=== PATIENT | female | born 1945 | race Caucasian/White ===

== ENCOUNTER 2025-01-27 12:25 | Inpatient (IN) | payer MEDICARE ==
[~2025-01-27] VITALS: Ht 160 cm; Wt 62.6 kg
[~2025-01-27 12:25] MED LIST: ATOR20TA PO; ESCI10TA PO; METHYLPREDNISOLONE PO; Naproxen PO
[2025-01-27] MEDS ORDERED: METOCLOPRAMIDE HCL 10 MG/2 ML VIAL ONE (12:54)
[2025-01-27] MEDS ORDERED: MORPHINE SULFATE 4 MG/1 ML DISP.SYRIN ONE (12:55)
[2025-01-27] MEDS: IV NORMAL SALINE 1000 ML BAG IV ONE (13:02)
[2025-01-27] MEDS: MORPHINE SULFATE 2 MG/1 ML DISP.SYRIN IV ONE ×4 (13:03→16:54)
[2025-01-27] MEDS: METOCLOPRAMIDE HCL 10 MG/2 ML VIAL IV ONE (13:03)
[2025-01-27 13:05] LABS: BASOPHILS % (AUTO) 0.3 % (0.0-2.0); DIFFERENTIAL COMMENT 1; EOSINOPHILS # (AUTO) 0.1 K/uL (0.0-0.7); EOSINOPHILS % (AUTO) 0.7 % (0.0-7.0); HEMATOCRIT 40.4 % (31.2-41.9); HEMOGLOBIN 13.8 g/dL (10.9-14.3); LYMPHOCYTES # (AUTO) 1.9 K/uL (0.8-4.8); LYMPHOCYTES % (AUTO) 19.3 % (20.5-51.5); MEAN CORPUSCULAR HEMOGLOBIN 29.6 uug (24.7-32.8); MEAN CORPUSCULAR HGB CONC 34 g/dL (32.3-35.6); MEAN CORPUSCULAR VOLUME 86.7 fL (75.5-95.3); MONOCYTES # (AUTO) 0.6 K/uL (0.1-1.30); MONOCYTES % (AUTO) 5.9 % (0.0-11.0); NEUTROPHILS # (AUTO) 7.1 K/uL (1.8-8.9); NEUTROPHILS % (AUTO) 73.8 % (38.5-71.5); PLATELET COUNT (AUTO) 223 K/uL (179-408); RED BLOOD CELL COUNT(AUTO) 4.66 MIL/uL (3.63-4.92); RED CELL DISTRIBUTION WIDTH 14.8 % (12.3-17.7); WHITE BLOOD COUNT (AUTO) 9.7 K/uL (3.8-11.8)
[2025-01-27 13:17] LABS: ALANINE AMINOTRANSFERASE 23 U/L (14-59); ALBUMIN 3.8 g/dL (3.4-5.0); ALKALINE PHOSPHATASE 47 U/L (50-136); ASPARTATE AMINOTRANSFERASE 20 U/L (15-37); BILIRUBIN,DIRECT 0.2 mg/dL (0.0-0.2); BILIRUBIN,TOTAL 0.6 mg/dL (0.2-1.0); CALCIUM 9.6 mg/dL (8.5-10.1); CARBON DIOXIDE 25 mmol/L (21-32); CHLORIDE 104 mmol/L (98-107); CREATININE 0.8 mg/dL (0.6-1.3); GLUCOSE 115 mg/dL (74-106); LIPASE 18 U/L (16-77); SODIUM SERUM 141 mmol/L (136-145); TOTAL PROTEIN, SERUM 7.4 g/dL (6.4-8.2); UREA NITROGEN, BLOOD 14 mg/dL (7-18)
[2025-01-27] MEDS ORDERED: MORPHINE SULFATE 2 MG/1 ML DISP.SYRIN ONE ×3 (13:33→16:44)
[2025-01-27] MEDS ORDERED: IV NORMAL SALINE 250 ML IV ONE (14:09)
[2025-01-27] MEDS ORDERED: IOHEXOL 300MG/ML 100 ML INFUS..BTL ONE (14:09)
[2025-01-27] MEDS ORDERED: SWABABLE VALVE TRANSFER SET EA MC ONE (14:10)
[2025-01-27] MEDS ORDERED: PIPERACILLIN/TAZOBACTAM/D5W 50 ML IV ONE ×3 (15:27→21:59)
[2025-01-27] MEDS: PIPERACILLIN SODIUM/TAZOBACTAM 3.375 G in IV DEXTROSE 5% 50 ML IV ONE (15:31)
[2025-01-27] MEDS: IV NS 1000 ML 1,000 ML IV STA (15:36)
[2025-01-27] MEDS ORDERED: TIZA4TAB5 PO (16:00)
[2025-01-27] MEDS ORDERED: EZET10TA15 PO (16:00)
[2025-01-27] MEDS ORDERED: ATOR20TA PO (16:00)
[2025-01-27] MEDS ORDERED: AMLO-212 PO (16:00)
[2025-01-27] MEDS ORDERED: EZET10TA32 PO (16:00)
[2025-01-27] MEDS ORDERED: LORAZEPAM 2 MG/1 ML VIAL ONE (16:44)
[2025-01-27] MEDS: LORAZEPAM 2 MG/1 ML VIAL IV ONE (16:54)
[2025-01-27 18:02] VITALS: BP 120/61; TEMP 98.3; O2SAT 96
[2025-01-27] MEDS: ONDANSETRON 4 MG/2 ML VIAL IV PRN (19:40)
[2025-01-27 19:57] VITALS: BP 124/52; TEMP 98; O2SAT 95
[2025-01-27] MEDS ORDERED: ACETAMINOPHEN 650 MG SUPP.RECT RC PRN (20:30)
[2025-01-27] MEDS: HYDROMORPHONE 1 MG/1 ML DISP.SYRIN IV PRN (20:54)
[2025-01-27] MEDS: IV D5/ 0.9% NACL 1,000 ML IV PRN (20:56)
[2025-01-27] MEDS ORDERED: PIPERACILLIN SODIUM/TAZOBACTAM 3.375 G in IV DEXTROSE 5% 50 ML IV SCH (22:00)
[2025-01-27] MEDS: PIPERACILLIN SODIUM/TAZOBACTAM 3.375 G in IV DEXTROSE 5% 50 ML IV SCH (22:18)
[2025-01-27] MEDS: LORAZEPAM 2 MG/1 ML VIAL IV PRN (23:11)
[2025-01-28 00:16] VITALS: BP 107/49; TEMP 98.3; O2SAT 94
[2025-01-28 05:00] VITALS: BP 109/52; TEMP 99; O2SAT 93
[2025-01-28 06:24] LABS: BASOPHILS % (AUTO) 0.3 % (0.0-2.0); EOSINOPHILS # (AUTO) 0.1 K/uL (0.0-0.7); EOSINOPHILS % (AUTO) 0.6 % (0.0-7.0); HEMATOCRIT 35.3 % (31.2-41.9); HEMOGLOBIN 11.9 g/dL (10.9-14.3); LYMPHOCYTES # (AUTO) 1.1 K/uL (0.8-4.8); LYMPHOCYTES % (AUTO) 11.7 % (20.5-51.5); MEAN CORPUSCULAR HEMOGLOBIN 30.3 uug (24.7-32.8); MEAN CORPUSCULAR HGB CONC 34 g/dL (32.3-35.6); MEAN CORPUSCULAR VOLUME 89.6 fL (75.5-95.3); MONOCYTES # (AUTO) 0.6 K/uL (0.1-1.30); MONOCYTES % (AUTO) 7.1 % (0.0-11.0); NEUTROPHILS # (AUTO) 7.2 K/uL (1.8-8.9); NEUTROPHILS % (AUTO) 80.3 % (38.5-71.5); PLATELET COUNT (AUTO) 196 K/uL (179-408); RED BLOOD CELL COUNT(AUTO) 3.94 MIL/uL (3.63-4.92)
[2025-01-28 06:35] LABS: ALANINE AMINOTRANSFERASE 10 U/L (14-59); ALBUMIN 2.9 g/dL (3.4-5.0); ALKALINE PHOSPHATASE 38 U/L (50-136); ASPARTATE AMINOTRANSFERASE 16 U/L (15-37); BILIRUBIN,TOTAL 0.7 mg/dL (0.2-1.0); CARBON DIOXIDE 27 mmol/L (21-32); CHLORIDE 106 mmol/L (98-107); CREATININE 0.8 mg/dL (0.6-1.3); GLUCOSE 130 mg/dL (74-106); PHOSPHOROUS 2.5 mg/dL (2.5-4.9); POTASSIUM 3.4 mmol/L (3.5-5.1); SODIUM SERUM 141 mmol/L (136-145); TOTAL PROTEIN, SERUM 6.1 g/dL (6.4-8.2); UREA NITROGEN, BLOOD 9 mg/dL (7-18)
[2025-01-28 06:42] LABS: IRON, SERUM 17 ug/dL (50-175)
[2025-01-28 06:47] LABS: DIFFERENTIAL COMMENT 1
[2025-01-28 07:39] VITALS: BP 104/45; TEMP 99.5; O2SAT 96
[2025-01-28] MEDS: PANTOPRAZOLE SODIUM 40 MG VIAL IV SCH (08:59)
[2025-01-28] MEDS ORDERED: ALEN70TA80 PO (09:55)
[2025-01-28] MEDS ORDERED: CLOB15CR4 TP (09:56)
[2025-01-28] MEDS ORDERED: CALC-1026 PO (09:57)
[2025-01-28] MEDS ORDERED: MULT-225 PO (09:57)
[2025-01-28] MEDS ORDERED: CHOL10005 PO (09:58)
[2025-01-28] MEDS ORDERED: MAGN400C PO (09:58)
[2025-01-28 11:16] VITALS: BP 105/59; TEMP 98.7; O2SAT 96
[2025-01-28] MEDS: ONDANSETRON 4 MG/2 ML VIAL IV PRN (11:47)
[2025-01-28] MEDS: POTASSIUM CHLORIDE 50 ML IV SCH (13:21)
[2025-01-28] MEDS: PIPERACILLIN SODIUM/TAZOBACTAM 3.375 G in IV DEXTROSE 5% 100 ML IV SCH (13:42)
[2025-01-28 15:48] VITALS: BP 120/53; TEMP 98.6; O2SAT 97
[2025-01-28] MEDS: OXYCODONE/APAP 5-325 MG TABLET PO ONE (17:50)
[2025-01-28 19:00] VITALS: BP 124/55; TEMP 98.2; O2SAT 95
[2025-01-29 06:00] VITALS: BP 120/55; TEMP 98.4; O2SAT 97
[2025-01-29] MEDS: MORPHINE SULFATE 2 MG/1 ML DISP.SYRIN IV PRN (08:52)
[2025-01-29 11:40] VITALS: BP 102/45; TEMP 98; O2SAT 97
[2025-01-29] MEDS: LACTULOSE 20 G/30 ML LIQUID UDC PO SCH (13:53)
[2025-01-29] MEDS: ESCITALOPRAM OXALATE 10 MG TABLET PO SCH (16:20)
[2025-01-29 16:29] VITALS: BP 118/54; TEMP 98.3; O2SAT 95
[2025-01-29] MEDS: OXYCODONE/APAP 5-325 MG TABLET PO PRN (18:56)
[2025-01-29 19:30] VITALS: BP 130/49; TEMP 98.1; O2SAT 95
[2025-01-29 21:05] LABS: *BILIRUBIN,URIN NEGATIVE (NEGATIVE); *CLARITY,URINE CLEAR (CLEAR); *COLOR,URINE YELLOW (YELLOW); *KETONES,URINE NEGATIVE (NEGATIVE); *PROTEIN,URINE NEGATIVE (NEGATIVE); *UROBILINOGEN,URINE 0.2 E.U./dl (NORMAL); LEUKOCYTE ESTERASE ,URINE NEGATIVE (NEGATIVE); NITRITE, URINE NEGATIVE (NEGATIVE); PH,URINE 5.5 (5.0-8.0); UGLUCOSE NEGATIVE (NEGATIVE)
[2025-01-29 21:06] LABS: *BLOOD, URINE TRACE (NEGATIVE)
[2025-01-29 21:15] LABS: BACTERIA,URINE FEW /HPF (NONE SEEN); RBC,URINE 0-3 /HPF (0-3); SQUAMOUS EPITHELIAL CELL,UR FEW /HPF (NONE SEEN); WBC,URINE 0-3 /HPF (0-3)
[2025-01-30] MEDS: PANTOPRAZOLE SODIUM 40 MG TABLET.DR PO SCH (06:32)
[2025-01-30 06:37] VITALS: BP 152/64; TEMP 98.5; O2SAT 95
[2025-01-30 07:15] LABS: BASOPHILS % (AUTO) 0.7 % (0.0-2.0); EOSINOPHILS # (AUTO) 0.2 K/uL (0.0-0.7); EOSINOPHILS % (AUTO) 2.5 % (0.0-7.0); HEMATOCRIT 34.4 % (31.2-41.9); HEMOGLOBIN 11.8 g/dL (10.9-14.3); LYMPHOCYTES # (AUTO) 1.5 K/uL (0.8-4.8); LYMPHOCYTES % (AUTO) 20.5 % (20.5-51.5); MEAN CORPUSCULAR HEMOGLOBIN 30.1 uug (24.7-32.8); MEAN CORPUSCULAR HGB CONC 34 g/dL (32.3-35.6); MEAN CORPUSCULAR VOLUME 87.8 fL (75.5-95.3); MONOCYTES # (AUTO) 0.5 K/uL (0.1-1.30); NEUTROPHILS % (AUTO) 69.3 % (38.5-71.5); PLATELET COUNT (AUTO) 193 K/uL (179-408); RED BLOOD CELL COUNT(AUTO) 3.92 MIL/uL (3.63-4.92); RED CELL DISTRIBUTION WIDTH 14.6 % (12.3-17.7); WHITE BLOOD COUNT (AUTO) 7.1 K/uL (3.8-11.8)
[2025-01-30 07:25] LABS: CARBON DIOXIDE 30 mmol/L (21-32); CHLORIDE 103 mmol/L (98-107); CREATININE 0.7 mg/dL (0.6-1.3); DIFFERENTIAL COMMENT 1; GLUCOSE 125 mg/dL (74-106); MAGNESIUM 2.1 mg/dL (1.8-2.4); PHOSPHOROUS 2.7 mg/dL (2.5-4.9); POTASSIUM 3.3 mmol/L (3.5-5.1); SODIUM SERUM 138 mmol/L (136-145); UREA NITROGEN, BLOOD 2 mg/dL (7-18)
[2025-01-30] MEDS: POTASSIUM CHLORIDE 20 MEQ POWDER PACKET PO ONE (10:07)
[2025-01-30 11:59] VITALS: BP 133/57; TEMP 98.4; O2SAT 98
[2025-01-30] MEDS ORDERED: SORBITOL 70% SOLUTION 30 ML UDC PO SCH (14:00)
[2025-01-30 16:14] VITALS: BP 136/63; TEMP 98.5; O2SAT 98
[2025-01-30 19:40] VITALS: BP 130/58; TEMP 98.2; O2SAT 98
[2025-01-31 06:04] VITALS: BP 139/58; TEMP 98.2; O2SAT 98
[2025-01-31 06:48] LABS: BASOPHILS # (AUTO) 0.1 K/UL (0.0-0.2); BASOPHILS % (AUTO) 1.5 % (0.0-2.0); EOSINOPHILS # (AUTO) 0.2 K/uL (0.0-0.7); EOSINOPHILS % (AUTO) 4.9 % (0.0-7.0); HEMATOCRIT 35.8 % (31.2-41.9); LYMPHOCYTES # (AUTO) 1.5 K/uL (0.8-4.8); LYMPHOCYTES % (AUTO) 33.4 % (20.5-51.5); MEAN CORPUSCULAR HEMOGLOBIN 29.4 uug (24.7-32.8); MEAN CORPUSCULAR HGB CONC 34 g/dL (32.3-35.6); MEAN CORPUSCULAR VOLUME 87.7 fL (75.5-95.3); MONOCYTES # (AUTO) 0.5 K/uL (0.1-1.30); MONOCYTES % (AUTO) 11.6 % (0.0-11.0); NEUTROPHILS # (AUTO) 2.2 K/uL (1.8-8.9); NEUTROPHILS % (AUTO) 48.6 % (38.5-71.5); PLATELET COUNT (AUTO) 214 K/uL (179-408); RED BLOOD CELL COUNT(AUTO) 4.08 MIL/uL (3.63-4.92); RED CELL DISTRIBUTION WIDTH 14.2 % (12.3-17.7); WHITE BLOOD COUNT (AUTO) 4.5 K/uL (3.8-11.8)
[2025-01-31 07:03] LABS: DIFFERENTIAL COMMENT 1
[2025-01-31 07:10] LABS: CHLORIDE 107 mmol/L (98-107); CREATININE 0.8 mg/dL (0.6-1.3); GLUCOSE 120 mg/dL (74-106); MAGNESIUM 2.3 mg/dL (1.8-2.4); PHOSPHOROUS 2.6 mg/dL (2.5-4.9); SODIUM SERUM 145 mmol/L (136-145); UREA NITROGEN, BLOOD 3 mg/dL (7-18)
[2025-01-31 07:28] LABS: CARBON DIOXIDE 31 mmol/L (21-32)
[2025-01-31] MEDS ORDERED: CHOL-35 PO (10:03)
[2025-01-31 12:00] VITALS: BP 141/62; TEMP 98.6; O2SAT 99
[2025-01-31] MEDS: AMLODIPINE 5 MG TABLET PO SCH (12:29)
[2025-01-31 15:59] VITALS: BP 128/50; TEMP 98; O2SAT 97
[2025-01-31] MEDS: ATORVASTATIN 20 MG TABLET PO SCH (20:53)
[2025-01-31] MEDS: SIMETHICONE 80 MG TAB.CHEW PO PRN (22:10)
[2025-01-31 23:43] VITALS: BP 112/64; TEMP 98.1; O2SAT 99
[2025-02-01 06:39] VITALS: BP 138/62; TEMP 98; O2SAT 95
[2025-02-01 07:15] LABS: BASOPHILS % (AUTO) 0.9 % (0.0-2.0); EOSINOPHILS # (AUTO) 0.2 K/uL (0.0-0.7); EOSINOPHILS % (AUTO) 3.6 % (0.0-7.0); HEMATOCRIT 35.8 % (31.2-41.9); HEMOGLOBIN 12.1 g/dL (10.9-14.3); LYMPHOCYTES # (AUTO) 1.7 K/uL (0.8-4.8); LYMPHOCYTES % (AUTO) 32.3 % (20.5-51.5); MEAN CORPUSCULAR HEMOGLOBIN 29.9 uug (24.7-32.8); MEAN CORPUSCULAR HGB CONC 34 g/dL (32.3-35.6); MEAN CORPUSCULAR VOLUME 88.7 fL (75.5-95.3); MONOCYTES # (AUTO) 0.5 K/uL (0.1-1.30); MONOCYTES % (AUTO) 10.2 % (0.0-11.0); NEUTROPHILS # (AUTO) 2.9 K/uL (1.8-8.9); PLATELET COUNT (AUTO) 230 K/uL (179-408); RED BLOOD CELL COUNT(AUTO) 4.04 MIL/uL (3.63-4.92); RED CELL DISTRIBUTION WIDTH 14.4 % (12.3-17.7); WHITE BLOOD COUNT (AUTO) 5.4 K/uL (3.8-11.8)
[2025-02-01 07:26] LABS: DIFFERENTIAL COMMENT 1
[2025-02-01 07:32] LABS: CALCIUM 8.9 mg/dL (8.5-10.1); CARBON DIOXIDE 32 mmol/L (21-32); CHLORIDE 105 mmol/L (98-107); GLUCOSE 120 mg/dL (74-106); MAGNESIUM 2.1 mg/dL (1.8-2.4); PHOSPHOROUS 2.8 mg/dL (2.5-4.9); POTASSIUM 3.5 mmol/L (3.5-5.1); SODIUM SERUM 145 mmol/L (136-145); UREA NITROGEN, BLOOD 5 mg/dL (7-18)
[2025-02-01 08:01] VITALS: BP 138/62
[2025-02-01] MEDS ORDERED: ESCITALOPRAM OXALATE 10 MG TABLET PO SCH (09:00)
[2025-02-01] MEDS ORDERED: LEVO500T90 PO (11:00)
[2025-02-01] MEDS ORDERED: METR500T PO (11:00)
== END 2025-02-01 12:05 | disposition home health service (06) | DRG 392 ==
LOC: ER 12:25 → TELE3 17:20 → MEDSURG3 01-28 17:10
PROVIDERS: ADMIT Internal Medicine; ATTEND Internal Medicine
PROC: 05HB33Z Insertion of Infusion Device into Right Basilic Vein, Percutaneous Approach (ICD-10-PCS; principal; 2025-01-28)
DX: K57.32 Diverticulitis of large intestine without perforation or abscess without bleeding (principal); E87.6 Hypokalemia; G43.909 Migraine, unspecified, not intractable, without status migrainosus; Z88.5 Allergy status to narcotic agent; E78.5 Hyperlipidemia, unspecified; I10 Essential (primary) hypertension; Z79.899 Other long term (current) drug therapy; E11.9 Type 2 diabetes mellitus without complications; F32.A Depression, unspecified; Z87.19 Personal history of other diseases of the digestive system; B96.89 Other specified bacterial agents as the cause of diseases classified elsewhere; K59.00 Constipation, unspecified
CPT/HCPCS: 36415; 74018; 83550; 83690; 83735; 84100; 85025; A4606; A4663; G0378; J1171; J2060; J2270; J2405; J2470; J2543; J2765; J3480; J7040; J7042; Q9967